=== PATIENT | female | born 1965 | race Caucasian/White ===

== ENCOUNTER → 2018-05-24 14:57 | Outpatient (CLI) | payer OTHER, MEDICAID, SELFPAY ==
[2018-05-24 16:04] LABS: Add Manual Diff / Slide Review NO; Basophils Percent Auto 0.9 % (0-2); Eosinophils Percent Auto 2.6 % (2-4); Hematocrit 39.4 % (36-46); Hemoglobin 13.1 g/dL (12.0-16.0); Lymphocytes Percent Auto 40.4 % (25-40); Mean Corpuscular HGB Conc 33.4 % (30-36); Mean Corpuscular Hemoglobin 26.9 PG (26-34); Mean Corpuscular Volume 80.5 fL (80-100); Monocytes Percent Auto 7.8 % (3-14); Neutrophils Absolute Auto 3600 /uL (3000-5900); Neutrophils Percent Auto 48.3 % (50-75); Platelet Count 269 X10^3/uL (150-400); Red Blood Cell Count 4.89 X10^6/uL (4.0-5.2); Red Cell Distribution Width 13.3 % (11.6-14.8); White Blood Cell Count 7.6 X10^3/uL (4.5-11.0)
[2018-05-24 16:19] LABS: Alanine Aminotransferase 22 IU/L (9-52); Albumin 4.2 g/dL (3.5-5.0); Albumin Globulin Ratio 1.4 (1.0-2.8); Alkaline Phosphatase 89 U/L (38-126); Aspartate Aminotransferase 18 IU/L (14-36); Bilirubin Total 0.4 mg/dL (0.2-1.3); Blood Urea Nitrogen 6 mg/dL (7-17); Calcium 9.2 mg/dL (8.4-10.2); Carbon Dioxide 28 mmol/L (22-32); Chloride 100 mmol/L (98-107); Estimated Glomerular Filt Rate > 60.0 mL/min (>60); Glucose 89 mg/dL (70-100); HEMOLYSIS < 15 (0-50); Magnesium 2.1 mg/dL (1.6-2.3); Potassium 3.7 mmol/L (3.4-5.1); Sodium 139 mmol/L (137-145); Total Protein 7.2 g/dL (6.3-8.2)
[2018-05-24 16:46] LABS: Thyroid Stimulating Hormone 1.44 uIU/mL (0.47-4.68)
[2018-05-24 17:22] LABS: Folate 10.7 ng/mL (2.76-20.0); Vitamin B12 315 pg/mL (239-931)
[2018-05-25 05:07] LABS: Hemoglobin A1C% w Est Avg Glu 5.6 % (4.0-6.0)
== END ==
PROVIDERS: Family Provider Family Medicine; PCP Family Medicine; Visit Provider Internal Medicine
DX: R20.2 Paresthesia of skin (principal)
CPT/HCPCS: 36415; 80053; 82607; 82746; 83036; 83735; 84443; 85025

== ENCOUNTER → 2018-06-16 13:01 | Outpatient (CLI) | payer OTHER, MEDICAID, SELFPAY | PROVIDERS: Family Provider Family Medicine; PCP Family Medicine; Visit Provider Internal Medicine | DX: R20.2 Paresthesia of skin (principal) | CPT/HCPCS: 95886; 95910 ==

== ENCOUNTER → 2018-08-09 11:44 | Outpatient (CLI) | payer OTHER, MEDICAID, SELFPAY ==
--- NOTE | 2018-08-09 11:45 | DI.MRI.S_ITS ---
PROCEDURE: MR CERVICAL SPINE WO CON INDICATIONS: left hand numbness weeknes and leg weeknes visual changes TECHNIQUE: Noncontrast sagittal T1 spin echo and T2 fast spin echo, sagittal STIR, foraminal oblique sagittal T2 fast spin echo, and axial gradient echo or T2 fast spin echo through the cervical spine. COMPARISON: None. FINDINGS: Image quality: Excellent. Alignment and Curvature: There is loss of normal cervical lordosis. There is mild grade 1 retrolisthesis of C6 on C7. Bone Marrow: Marrow demonstrates normal overall signal. There is mild reactive signal within the endplates adjacent to the C5-C6, C6-C7, and C7-T1 intervertebral discs. Spinal Cord: Visualized spinal cord has normal size and signal. No cerebellar tonsillar herniation. Paraspinous Soft Tissues: No paravertebral masses. Prevertebral soft tissues are normal in thickness. C2-C3: Mild disc desiccation. No significant canal, nor foraminal stenosis. C3-C4: Mild disc velocity desiccation. Mild diffuse disc bulge. Mild canal stenosis. No foraminal stenosis. C4-C5: Mild disc velocity desiccation. Mild diffuse disc bulge. Mild facet and uncovertebral hypertrophy. Mild canal stenosis. Mild foraminal stenosis bilaterally. C5-C6: Moderate discoid loss and desiccation. Mild diffuse disc bulge. Mild facet and uncovertebral hypertrophy bilaterally. Moderate canal stenosis. Mild foraminal stenosis bilaterally. C6-C7: Moderate disc velocity desiccation. Mild diffuse disc bulge/osteophyte. Mild facet and uncovertebral hypertrophy bilaterally. Moderate canal stenosis. Mild foraminal stenosis bilaterally. C7-T1: Moderate disc height loss and desiccation. Moderate diffuse disc bulge with superimposed broad-based right posterior lateral broad-based protrusion. Mild facet and uncovertebral hypertrophy bilaterally. Mild canal stenosis. Moderate right and mild left foraminal stenosis. IMPRESSION: 1. Multilevel degenerative disc and facet disease, as well as uncovertebral hypertrophy. 2. Multilevel canal stenoses, worst at C5-C6 and C6-C7, where there are moderate canal stenoses present. 3. Multilevel foraminal stenoses, worst at C7-T1 on the right, where there is moderate foraminal stenosis present. Dictated by: Sabina Camacho M.D. on 08/09/2018 at 13:54 Approved by: Sabina Camacho M.D. on 08/09/2018 at 13:58
--- NOTE | 2018-08-09 11:45 | DI.MRI.S_ITS ---
PROCEDURE: MR HEAD/BRAIN WO/W CON INDICATIONS: left hand numbness weakness and leg weakness visual changes TECHNIQUE: Noncontrast axial T1 spin echo, axial T2 fast spin echo, sagittal and axial FLAIR, coronal T2 fast spin echo, axial gradient echo, axial diffusion and ADC through the brain. After the administration of contrast, axial and coronal 3D VIBE or T1 spin echo with fat saturation through the brain. COMPARISON: None. FINDINGS: Image quality: Excellent. CSF Spaces: Basal cisterns are patent. No extra-axial fluid collections. Ventricles are normal in size and shape. Brain: No midline shift. No intracranial bleeds or masses. No abnormal intracranial enhancement. The brainstem appears normal. Diffusion-weighted images demonstrate no acute ischemic insults. No chronic ischemic insults. Normal intravascular flow voids are present. Skull and face: Calvarial marrow is normal in signal. Orbits appear normal. Sinuses: Sinuses and mastoids appear clear. IMPRESSION: 1. No acute intracranial process. 2. No explanation for visual changes, leg weakness, and hand numbness. Dictated by: Sabina Camacho M.D. on 08/09/2018 at 13:43 Approved by: Sabina Camacho M.D. on 08/09/2018 at 13:46
== END ==
PROVIDERS: Family Provider Family Medicine; PCP Family Medicine; Visit Provider Family Medicine
DX: H53.9 Unspecified visual disturbance (principal); M48.02 Spinal stenosis, cervical region; M50.31 Other cervical disc degeneration, high cervical region; R20.0 Anesthesia of skin; M62.81 Muscle weakness (generalized)
CPT/HCPCS: 70553; 72141

== ENCOUNTER → 2018-11-04 10:03 | Outpatient (CLI) | payer OTHER, SELFPAY ==
[2018-11-04 10:53] LABS: Add Manual Diff / Slide Review NO; Basophils Percent Auto 0.4 % (0-2); Eosinophils Percent Auto 2.7 % (2-4); Hematocrit 41.3 % (36-46); Hemoglobin 13.7 g/dL (12.0-16.0); Lymphocytes Percent Auto 37.3 % (25-40); Mean Corpuscular HGB Conc 33.2 % (30-36); Mean Corpuscular Hemoglobin 26.8 PG (26-34); Mean Corpuscular Volume 80.8 fL (80-100); Neutrophils Absolute Auto 3500 /uL (1500-7000); Neutrophils Percent Auto 48.6 % (50-75); Platelet Count 304 X10^3/uL (150-400); Red Blood Cell Count 5.11 X10^6/uL (4.0-5.2); Red Cell Distribution Width 13.3 % (11.6-14.8); White Blood Cell Count 7.1 X10^3/uL (4.5-11.0)
[2018-11-04 11:05] LABS: Alanine Aminotransferase 29 IU/L (9-52); Albumin 4.5 g/dL (3.5-5.0); Albumin Globulin Ratio 1.4 (1.0-2.8); Alkaline Phosphatase 92 U/L (38-126); Aspartate Aminotransferase 18 IU/L (14-36); BUN Creatinine Ratio 18.3 (6-22); Bilirubin Total 0.4 mg/dL (0.2-1.3); Blood Urea Nitrogen 11 mg/dL (7-17); Calcium 9.7 mg/dL (8.4-10.2); Carbon Dioxide 26 mmol/L (22-32); Chloride 99 mmol/L (98-107); Cholesterol 210 mg/dL (140-199); Estimated Glomerular Filt Rate > 60.0 mL/min (>60); Globulin 3.3 g/dL (1.7-4.1); Glucose 84 mg/dL (70-100); HDL Cholesterol 53 mg/dL (40-60); HEMOLYSIS 16 (0-50); LDL Cholesterol Calculated 133 mg/dL (<100); Potassium 4.1 mmol/L (3.4-5.1); Sodium 138 mmol/L (137-145); Total Protein 7.8 g/dL (6.3-8.2); Triglycerides 120 mg/dL (35-150)
[2018-11-04 11:35] LABS: TSH w/ Reflex to FT4 3.09 uIU/mL (0.47-4.68)
== END ==
PROVIDERS: Family Provider Family Medicine; PCP Family Medicine; Visit Provider Family Medicine
DX: E66.01 Morbid (severe) obesity due to excess calories (principal); I10 Essential (primary) hypertension
CPT/HCPCS: 36415; 80053; 80061; 84443; 85025

== ENCOUNTER → 2020-04-02 09:42 | Outpatient (CLI) | payer OTHER, SELFPAY ==
[2020-04-02 11:03] LABS: Add Manual Diff / Slide Review NO; Basophils Absolute Auto 0 /uL (0-100); Basophils Percent Auto 0.3 % (0-2); Eosinophils Absolute Auto 300 /uL (0-450); Eosinophils Percent Auto 3.7 % (2-4); Hematocrit 38.9 % (36-46); Hemoglobin 13.2 g/dL (12.0-16.0); Lymphocytes Absolute Auto 3100 /uL (1100-4500); Lymphocytes Percent Auto 40.7 % (25-40); Mean Corpuscular Hemoglobin 27.5 PG (26-34); Mean Corpuscular Volume 80.9 fL (80-100); Monocytes Absolute Auto 700 /uL (0-900); Monocytes Percent Auto 8.7 % (3-14); Neutrophils Absolute Auto 3500 /uL (1500-7000); Neutrophils Percent Auto 46.6 % (50-75); Platelet Count 300 X10^3/uL (150-400); Red Blood Cell Count 4.81 X10^6/uL (4.0-5.2); Red Cell Distribution Width 13.9 % (11.6-14.8); White Blood Cell Count 7.5 X10^3/uL (4.5-11.0)
[2020-04-02 11:09] LABS: Alanine Aminotransferase 16 IU/L (<35); Albumin 4.3 g/dL (3.5-5.0); Albumin Globulin Ratio 1.2 (1.0-2.8); Alkaline Phosphatase 102 U/L (38-126); Aspartate Aminotransferase 21 IU/L (14-36); BUN Creatinine Ratio 14.8 (6-22); Bilirubin Total 0.4 mg/dL (0.2-1.3); Blood Urea Nitrogen 9 mg/dL (7-17); Calcium 9.5 mg/dL (8.4-10.2); Carbon Dioxide 24 mmol/L (22-32); Chloride 105 mmol/L (98-107); Cholesterol 205 mg/dL (140-199); Estimated Glomerular Filt Rate > 60.0 mL/min (>60); Globulin 3.6 g/dL (1.7-4.1); Glucose 89 mg/dL (70-100); HDL Cholesterol 42 mg/dL (40-60); HEMOLYSIS < 15 (0-50); LDL Cholesterol Calculated 135 mg/dL (<100); Potassium 4.1 mmol/L (3.4-5.1); Sodium 140 mmol/L (137-145); Total Protein 7.9 g/dL (6.3-8.2); Triglycerides 138 mg/dL (35-150)
[2020-04-02 11:57] LABS: TSH w/ Reflex to FT4 2.53 uIU/mL (0.47-4.68)
== END ==
PROVIDERS: Family Provider Family Medicine; PCP Family Medicine; Referring Provider Family Medicine; Visit Provider Family Medicine
DX: E66.01 Morbid (severe) obesity due to excess calories (principal); I10 Essential (primary) hypertension
CPT/HCPCS: 36415; 80053; 80061; 84443; 85025

== ENCOUNTER → 2020-04-30 13:43 | Outpatient (CLI) | payer OTHER, SELFPAY ==
[2020-05-01 20:32] LABS: COVID19 Sendout Not Detected (Not Detect)
== END ==
PROVIDERS: PCP Family Medicine; Visit Provider Physician Assistant
DX: Z01.812 Encounter for preprocedural laboratory examination (principal)
CPT/HCPCS: 87635

== ENCOUNTER 2020-05-03 07:33 | Day surgery (SDC) | payer OTHER, SELFPAY ==
[2020-05-03] VITALS (17 sets, daily range): BP systolic 87–121; BP diastolic 53–73; PULSE 70–88; RESP 11–20; TEMP 36.2–36.6; O2SAT 96–100; BMI 42.0
[2020-05-03] MEDS: SODIUM CHLORIDE 0.9% 1,000 ML 200 ML IV ×2 (07:57→09:32)
--- NOTE | 2020-05-03 08:38 | PM.HP.1 ---
History of Present Illness History of Present Illness Date Patient Seen: 05/03/20 Time Patient Seen: 08:39 Chief complaint: [id number] Narrative: Patient is here for screening colonoscopy has had 2 prior colonoscopies and has had polyps in the past all benign Patient History Medical History Chicken pox (Resolved) Chronic back pain (Chronic) Colon polyps (Resolved 2011) Foot pain (Chronic) GERD (gastroesophageal reflux disease) (Resolved 1994) Hayfever (Chronic) Herpes (Chronic 1981) Hypertension (Chronic 2010) Migraines (Chronic) Surgical History Anesthesia (Resolved) History of sinus surgery (Resolved 2001) Status post LASIK surgery (Resolved 2004) Family & Social History Family History Father Diabetes mellitus Hypertension Mental health problem Cancer Heart disease High cholesterol Colon cancer Liver cancer Mother Age: 88 Heart disease Hypertension High cholesterol Sister Age: 59 Hypertension Tobacco & Substance use: Smoking Status Former smoker alcohol intake current alcohol intake frequency a few times a month Substance Use Type does not use Meds Home Medications and Allergies Home Medications Medication Instructions Recorded Confirmed Type lisinopril 10 1 tab PO QDAY #90 tab 04/09/20 05/03/20 Rx mg-hydrochlorothiazide 12.5 mg tablet omeprazole magnesium [Prilosec OTC] 20 mg PO DAILY PRN 05/03/20 05/03/20 History oxybutynin chloride 5 mg PO BID PRN 05/03/20 05/03/20 History Allergies Allergy/AdvReac Type Severity Reaction Status Date / Time No Known Drug Allergies Allergy Verified 05/03/20 07:48 Review of Systems Review of Systems ROS: Yes All systems reviewed with the patient and are negative except as otherwise documented Exam Vital Signs (past 8 hours): - 05/03/20 07:56 Temperature 97.4 F L Pulse Rate 88 Respiratory Rate 18 Blood Pressure 121/73 Pulse Oximetry 97 Oxygen Delivery Method Room Air Narrative Exam Narrative: Patient is alert and oriented Lungs are clear Heart regular rhythm no murmur Abdomen soft nontender Rectal to be done at time of colonoscopy Assessment & Plan Assessment & Plan narrative: Patient here for a follow-up screening colonoscopy with a history of polyps in the past she is asymptomatic
[2020-05-03] MEDS: fentaNYL 250 MCG/5 ML INJ IV (09:03)
[2020-05-03] MEDS: MIDAZOLAM 5 MG/5 ML VIAL IV (09:04)
--- NOTE | 2020-05-03 09:14 | PM.OP.ENDO ---
Operative Date/Time/Diagnoses Date of procedure: 05/03/20 Time of procedure: 09:15 Pre-op diagnosis: History of colon polyps Post-op diagnosis: same Procedure & Clinicians Study performed: Total colonoscopy to the cecum Same procedure as scheduled: Yes Indications: History of polyps Surgeon: Jefferson Bruce Procedure Notes SCOAP/Timeout: This was done Procedure in detail: The patient was given conscious sedation total of 5 mg of Versed and 200mg micro g of fentanyl and tolerated the procedure very well the flexible fiberoptic colonoscope was inserted transanally to the cecum patient has severe sigmoid diverticulosis without diverticulitis no polyps tumors or ulcerations were seen procedure was well tolerated numerous photographs were taken Scope withdrawal time: 11 Sedation minutes: 20 Findings: diverticulosis Specimen(s): none sent Post-procedure Recommendations: Colonscopy in 5 years
--- NOTE | 2020-05-03 12:17 | SUR.PHASEII ---
Discharge Pt had low BP, was wide awake. Denied any dizziness or lightheadedness. BP monitored. Checked orthostatic VS and they improved slightly with standing. She was able to walk to the bathroom without issue. Insturcted to monitor for dizziness at home. Left in w/c with RN escort to car with her sister. She took her purse and cell phone with her.
== END 2020-05-03 11:35 | disposition home or self-care (01) ==
PROVIDERS: PCP Family Medicine; Referring Provider Surgery; Visit Provider Surgery
PROC: 0DJD8ZZ Inspection of Lower Intestinal Tract, Via Natural or Artificial Opening Endoscopic (ICD-10-PCS; CPT 45378; principal; 2020-05-03 08:30)
DX: Z12.11 Encounter for screening for malignant neoplasm of colon (principal); Z86.010 Personal history of colon polyps; K57.30 Diverticulosis of large intestine without perforation or abscess without bleeding; I10 Essential (primary) hypertension
CPT/HCPCS: 45378; 99152; J2250; J3010

== ENCOUNTER → 2020-05-04 14:09 | Outpatient (CLI) | payer OTHER, SELFPAY ==
--- NOTE | 2020-05-04 14:20 | DI.MG.S_ITS ---
Patient Name: DOYLE OLIVA date: 1965 Sex: F Attending Physician: Aide Indications: Date: 05/04/2020 14:11 At the request of: ZANE MONROE Procedure: MM screening mammo BI BILATERAL DIGITAL SCREENING MAMMOGRAM 3D/2D WITH CAD: 05/04/2020 CLINICAL: Routine screening. Comparison is made to exams dated: 11/23/2016 mammogram, 01/11/2014 mammogram - [facility], and 10/07/2011 mammogram - [facility]. The tissue of both breasts is predominantly fatty. Current study was also evaluated with a Computer Aided Detection (CAD) system. No significant masses, calcifications, or other findings are seen in either breast. There has been no significant interval change. IMPRESSION: NEGATIVE There is no mammographic evidence of malignancy. A 1 year screening mammogram is recommended. This exam was interpreted at Station ID: [id number]. NOTE: For mammograms, a report in lay terms will be sent to the patient. Approximately 15% of breast malignancies will not be visualized mammographically. In the management of a palpable breast mass, a negative mammogram must not discourage biopsy of a clinically suspicious lesion. Electronically Signed By: Zane Augustin M.D., jr/maribell:05/06/2020 08:45:17 letter sent: Normal Exam ACR BI-RADS Category 1: Negative 3341F
== END ==
PROVIDERS: PCP Family Medicine; Referring Provider Family Medicine; Visit Provider Family Medicine
DX: Z12.31 Encounter for screening mammogram for malignant neoplasm of breast (principal)
CPT/HCPCS: 77063; 77067

== ENCOUNTER → 2020-10-12 13:02 | Outpatient (CLI) | payer OTHER, SELFPAY ==
[2020-10-12 13:47] LABS: COVID19 -Nasal RAPID Negative (Negative)
== END ==
PROVIDERS: PCP Family Medicine; Referring Provider Physician Assistant; Visit Provider Physician Assistant
DX: Z20.828 Contact with and (suspected) exposure to other viral communicable diseases (principal)
CPT/HCPCS: 87635

== ENCOUNTER → 2020-11-15 12:50 | Outpatient (CLI) | payer OTHER, SELFPAY ==
[2020-11-15] MEDS: COVID-19 VACC #1, MRNA(MOD) 100 MCG/0.5 ML VIAL IM (12:56)
== END ==
PROVIDERS: PCP Family Medicine; Visit Provider Internal Medicine
DX: Z23 Encounter for immunization (principal)
CPT/HCPCS: 0011A; 91301

== ENCOUNTER → 2020-12-13 12:58 | Outpatient (CLI) | payer OTHER, SELFPAY ==
[2020-12-13] MEDS: COVID-19 VACC #2, MRNA(MOD) 100 MCG/0.5 ML VIAL IM (13:06)
== END ==
PROVIDERS: PCP Family Medicine; Visit Provider Internal Medicine
DX: Z23 Encounter for immunization (principal)
CPT/HCPCS: 0012A; 91301

== ENCOUNTER → 2021-06-05 08:47 | Outpatient (CLI) | payer OTHER, SELFPAY ==
[2021-06-05 09:58] LABS: Add Manual Diff / Slide Review NO; Basophils Absolute Auto 0 /uL (0-100); Basophils Percent Auto 0.5 % (0-2); Eosinophils Absolute Auto 300 /uL (0-450); Eosinophils Percent Auto 3.3 % (2-4); Hematocrit 38.1 % (36-46); Hemoglobin 12.6 g/dL (12.0-16.0); Lymphocytes Absolute Auto 3400 /uL (1100-4500); Lymphocytes Percent Auto 41.2 % (25-40); Mean Corpuscular Hemoglobin 26.3 PG (26-34); Mean Corpuscular Volume 79.7 fL (80-100); Monocytes Absolute Auto 800 /uL (0-900); Monocytes Percent Auto 9.5 % (3-14); Neutrophils Absolute Auto 3800 /uL (1500-7000); Neutrophils Percent Auto 45.5 % (50-75); Platelet Count 305 X10^3/uL (150-400); Red Blood Cell Count 4.78 X10^6/uL (4.0-5.2); Red Cell Distribution Width 13.6 % (11.6-14.8); White Blood Cell Count 8.3 X10^3/uL (4.5-11.0)
[2021-06-05 10:26] LABS: Alanine Aminotransferase 14 IU/L (<35); Albumin 3.7 g/dL (3.5-5.0); Albumin Globulin Ratio 1.1 (1.0-2.8); Alkaline Phosphatase 91 U/L (38-126); Aspartate Aminotransferase 19 IU/L (14-36); BUN Creatinine Ratio 16.1 (6-22); Bilirubin Total 0.3 mg/dL (0.2-1.3); Blood Urea Nitrogen 10 mg/dL (7-17); Calcium 9.2 mg/dL (8.4-10.2); Carbon Dioxide 24 mmol/L (22-32); Chloride 106 mmol/L (98-107); Cholesterol 201 mg/dL (140-199); Estimated Glomerular Filt Rate > 60.0 mL/min (>60); Globulin 3.4 g/dL (1.7-4.1); Glucose 93 mg/dL (70-100); HDL Cholesterol 42 mg/dL (40-60); HEMOLYSIS < 15 (0-50); LDL Cholesterol Calculated 126 mg/dL (<100); Sodium 138 mmol/L (137-145); Total Protein 7.1 g/dL (6.3-8.2); Triglycerides 165 mg/dL (35-150)
[2021-06-05 10:55] LABS: TSH w/ Reflex to FT4 3.69 uIU/mL (0.47-4.68)
== END ==
PROVIDERS: PCP Family Medicine; Referring Provider Family Medicine; Visit Provider Family Medicine
DX: E78.5 Hyperlipidemia, unspecified (principal); I10 Essential (primary) hypertension
CPT/HCPCS: 36415; 80053; 80061; 84443; 85025

== ENCOUNTER → 2022-05-16 11:53 | Outpatient (CLI) | payer OTHER, SELFPAY ==
--- NOTE | 2022-05-16 11:55 | DI.RAD.S_ITS ---
PROCEDURE: XR KNEE RT 3V INDICATIONS: knee pain TECHNIQUE: 3 views of the knee were acquired. COMPARISON: [facility], CR, XR KNEE LT 3V, 05/16/2022, 12:43. FINDINGS: Bones: No fractures or dislocations. No suspicious bony lesions. On the sunrise view, there is severe lateral patellofemoral joint space narrowing seen. Osteophyte formation can be seen along the margins of the patella. There is mild lateral and medial femorotibial joint space narrowing seen, with associated remodeling changes including subchondral sclerosis and osteophyte formation along the jointline. Soft tissues: No joint effusion. No suspicious soft tissue calcifications. IMPRESSION: Severe patellofemoral joint space narrowing seen laterally. If it would be helpful for clinical management decision making, please consider a dedicated, scheduled knee MRI for further evaluation (assuming that there is no contraindication). Dictated by: Daniel Banerjee M.D. on 05/16/2022 at 16:42 Approved by: Daniel Banerjee M.D. on 05/16/2022 at 16:46
--- NOTE | 2022-05-16 11:55 | DI.RAD.S_ITS ---
PROCEDURE: XR KNEE LT 3V INDICATIONS: knee pain TECHNIQUE: 3 views of the knee were acquired. COMPARISON: [facility], CR, XR KNEE RT 3V, 05/16/2022, 12:43. FINDINGS: Bones: No fractures or dislocations. No suspicious bony lesions. There is mild medial and lateral femorotibial joint space narrowing seen, with associated remodeling changes including subchondral sclerosis and osteophyte formation along the jointline. On the sunrise view, there is moderate to severe lateral patellofemoral joint space narrowing seen. Osteophyte formation can be seen along the margins of the patella. Soft tissues: No joint effusion. No suspicious soft tissue calcifications. IMPRESSION: Focal lateral patellofemoral joint narrowing, with milder degenerative changes seen elsewhere. If it would be helpful for clinical management decision making, please consider a dedicated, scheduled knee MRI for further evaluation (assuming that there is no contraindication). Dictated by: Daniel Banerjee M.D. on 05/16/2022 at 16:46 Approved by: Daniel Banerjee M.D. on 05/16/2022 at 16:47
[2022-05-16 12:58] LABS: Cholesterol 218 mg/dL (140-199); HDL Cholesterol 49 mg/dL (40-60); LDL Cholesterol Calculated 139 mg/dL (<100); Triglycerides 148 mg/dL (35-150)
== END ==
PROVIDERS: PCP Family Medicine; Referring Provider Family Medicine; Visit Provider Family Medicine
DX: M25.569 Pain in unspecified knee (principal); E78.5 Hyperlipidemia, unspecified
CPT/HCPCS: 36415; 73562; 80061

== ENCOUNTER → 2022-08-13 17:12 | Outpatient (CLI) | payer OTHER, SELFPAY ==
--- NOTE | 2022-08-13 17:14 | DI.MG.S_ITS ---
BILATERAL DIGITAL SCREENING MAMMOGRAM 3D/2D WITH CAD: 08/13/2022 CLINICAL: Routine screening. Comparison is made to exams dated: 05/04/2020 mammogram, 01/11/2014 mammogram, and 11/23/2016 mammogram - [facility]. There are scattered areas of fibroglandular density in both breasts (category b / 25%-50% glandular tissue). Current study was also evaluated with a Computer Aided Detection (CAD) system. No significant masses, calcifications, or other findings are seen in either breast. There has been no significant interval change. IMPRESSION: NEGATIVE There is no mammographic evidence of malignancy. A 1 year screening mammogram is recommended. Based on the Tyrer Cuzick model (a risk assessment model) the patient's lifetime risk is 9.6% and her 10 year risk is 3.7%. According to the ACR, ACS, and NCCN guidelines, an annual breast MRI exam along with mammogram is recommended if the patient's lifetime risk is 20% or greater. This exam was interpreted at Station ID: [id number]. NOTE: For mammograms, a report in lay terms will be sent to the patient. Approximately 15% of breast malignancies will not be visualized mammographically. In the management of a palpable breast mass, a negative mammogram must not discourage biopsy of a clinically suspicious lesion. Electronically Signed By: Edgar morales/maribell:08/14/2022 09:42:52 letter sent: Normal Exam ACR BI-RADS Category 1: Negative 3341F
== END ==
PROVIDERS: PCP Family Medicine; Referring Provider Family Medicine; Visit Provider Family Medicine
DX: Z12.31 Encounter for screening mammogram for malignant neoplasm of breast (principal)
CPT/HCPCS: 77063; 77067

== ENCOUNTER → 2023-05-22 10:21 | Outpatient (CLI) | payer OTHER, SELFPAY ==
[2023-05-22 11:16] LABS: Add Manual Diff / Slide Review NO; Basophils Absolute Auto 0 /uL (0-100); Basophils Percent Auto 0.5 % (0-2); Eosinophils Absolute Auto 300 /uL (0-450); Eosinophils Percent Auto 4.6 % (2-4); Hematocrit 38.6 % (36-46); Hemoglobin 12.9 g/dL (12.0-16.0); Lymphocytes Absolute Auto 3400 /uL (1100-4500); Lymphocytes Percent Auto 46.7 % (25-40); Mean Corpuscular HGB Conc 33.3 % (30-36); Mean Corpuscular Hemoglobin 26.8 PG (26-34); Mean Corpuscular Volume 80.5 fL (80-100); Monocytes Absolute Auto 700 /uL (0-900); Monocytes Percent Auto 9.2 % (3-14); Neutrophils Absolute Auto 2800 /uL (1500-7000); Platelet Count 272 X10^3/uL (150-400); Red Blood Cell Count 4.79 X10^6/uL (4.0-5.2); Red Cell Distribution Width 13.7 % (11.6-14.8); White Blood Cell Count 7.2 X10^3/uL (4.5-11.0)
[2023-05-22 11:33] LABS: Alanine Aminotransferase 19 IU/L (<35); Albumin Globulin Ratio 1.2 (1.0-2.8); Alkaline Phosphatase 112 U/L (38-126); Aspartate Aminotransferase 25 IU/L (14-36); BUN Creatinine Ratio 16.9 (6-22); Bilirubin Total 0.4 mg/dL (0.2-1.3); Blood Urea Nitrogen 10 mg/dL (7-17); Calcium 8.9 mg/dL (8.4-10.2); Carbon Dioxide 26 mmol/L (22-32); Chloride 104 mmol/L (98-107); Cholesterol 210 mg/dL (140-199); Estimated Glomerular Filt Rate > 60 mL/min (>60); Globulin 3.4 g/dL (1.7-4.1); Glucose 85 mg/dL (80-110); HDL Cholesterol 44 mg/dL (40-60); HEMOLYSIS < 15 (0-50); LDL Cholesterol Calculated 136 mg/dL (<100); Potassium 4.1 mmol/L (3.4-5.1); Sodium 137 mmol/L (137-145); Total Protein 7.4 g/dL (6.3-8.2); Triglycerides 152 mg/dL (35-150)
[2023-05-22 12:04] LABS: TSH w/ Reflex to FT4 2.06 uIU/mL (0.47-4.68)
[2023-05-23 06:25] LABS: Labcorp Hemoglobin (Hb) A1c 5.7 % (4.8-5.6)
== END ==
PROVIDERS: PCP Family Medicine; Referring Provider Family Medicine; Visit Provider Family Medicine
DX: E78.5 Hyperlipidemia, unspecified (principal); I10 Essential (primary) hypertension
CPT/HCPCS: 36415; 80053; 80061; 83036; 84443; 85025

== ENCOUNTER → 2023-05-23 12:38 | Outpatient (CLI) | payer OTHER, SELFPAY ==
--- NOTE | 2023-05-23 12:40 | DI.CT.S_ITS ---
PROCEDURE: CT HEAD/BRAIN WO/W CON INDICATIONS: memory loss TECHNIQUE: 4.5 mm thick angled axial sections acquired from the foramen magnum to the vertex before and after the administration of intravenous contrast, with coronal and sagittal reformats. For radiation dose reduction, the following was used: automated exposure control, adjustment of mA and/or kV according to patient size. COMPARISON: None. FINDINGS: Image quality: Excellent. CSF Spaces: Basal cisterns are patent. No extra-axial fluid collections. Ventricles are normal in size and shape. Brain: No midline shift. No intracranial bleeds or masses. No abnormal intracranial enhancement. Scanlon-white interface appears normal. Skull and face: Calvarium and visualized facial bones appear intact, without suspicious lesions. Sinuses: Visualized sinuses and mastoids are clear. IMPRESSION: Normal CT of the brain with and without contrast Approved by: Thad Bishop M.D. on 05/23/2023 at 14:08
== END ==
PROVIDERS: PCP Family Medicine; Referring Provider Family Medicine; Visit Provider Family Medicine
DX: R41.3 Other amnesia (principal)
CPT/HCPCS: 70470

== ENCOUNTER → 2023-08-25 16:13 | Outpatient (CLI) | payer OTHER, SELFPAY ==
--- NOTE | 2023-08-25 | DI.MG.S_ITS ---
BILATERAL DIGITAL SCREENING MAMMOGRAM 3D/2D WITH CAD: 08/25/2023 CLINICAL: Routine screening. Comparison is made to exams dated: 08/13/2022 mammogram, 05/04/2020 mammogram, and 11/23/2016 mammogram - [facility]. There are scattered areas of fibroglandular density in both breasts (category b / 25%-50% glandular tissue). Current study was also evaluated with a Computer Aided Detection (CAD) system. No significant masses, calcifications, or other findings are seen in either breast. There has been no significant interval change. IMPRESSION: NEGATIVE There is no mammographic evidence of malignancy. A 1 year screening mammogram is recommended. Based on the Tyrer Cuzick model (a risk assessment model) the patient's lifetime risk is 9.4% and her 10 year risk is 3.8%. According to the ACR, ACS, and NCCN guidelines, an annual breast MRI exam along with mammogram is recommended if the patient's lifetime risk is 20% or greater. This exam was interpreted at Station ID: [id number]. NOTE: For mammograms, a report in lay terms will be sent to the patient. Approximately 15% of breast malignancies will not be visualized mammographically. In the management of a palpable breast mass, a negative mammogram must not discourage biopsy of a clinically suspicious lesion. Electronically Signed By: Edgar morales/maribell:08/26/2023 12:14:33 letter sent: Normal Exam ACR BI-RADS Category 1: Negative 3341F
== END ==
PROVIDERS: PCP Family Medicine; Referring Provider Family Medicine; Visit Provider Family Medicine
DX: Z12.31 Encounter for screening mammogram for malignant neoplasm of breast (principal)
CPT/HCPCS: 77063; 77067

== ENCOUNTER → 2023-11-24 14:29 | Outpatient (CLI) | payer OTHER, SELFPAY ==
--- NOTE | 2023-11-24 14:33 | DI.RAD.S_ITS ---
PROCEDURE: XR HAND LT MIN 3V INDICATIONS: Pain Left MCP x 1 year getting worse; suspect arthritis TECHNIQUE: 3 views of the hand(s) acquired. COMPARISON: None. FINDINGS: Bones: No fractures or dislocations. Carpal bones are normally aligned. No suspicious bony lesions. Mild degenerative arthritis involving the 1st carpometacarpal joint as well as the 1st IP joint. No other significant arthritic change. Soft tissues: No suspicious soft tissue calcifications. 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 Otherwise unremarkable. Dictated by: Micah Deleon M.D. on 11/24/2023 at 18:58 Approved by: Micah Deleon M.D. on 11/24/2023 at 18:59
== END ==
PROVIDERS: PCP Family Medicine; Referring Provider Physician Assistant; Visit Provider Physician Assistant
DX: M18.12 Unilateral primary osteoarthritis of first carpometacarpal joint, left hand (principal); M19.042 Primary osteoarthritis, left hand; M79.645 Pain in left finger(s)
CPT/HCPCS: 73130

== ENCOUNTER 2023-12-06 12:02 | Outpatient (RCR) | payer OTHER, SELFPAY ==
--- NOTE | 2023-12-06 16:00 | OT.OP.EVAL ---
Visit Care Team Role Provider Type Zane Noble MD Family Provider Physician Primary Care Provider Specialty: Family Practice Address: [address] [place] [address], [address], [place], [address] Email: [email or web address] Mary Strickland [email or web address] Attending Provider [employer] Build[employer] Gr[employer] Superintendent Referring Provider Specialty: Medical Address: [address] [place] [address], [place] [address], [place], [address] Email: [email or web address] Occupational Therapy Initial Evaluation OT Outpatient Adult Evaluation Start: 12/07/23 09:10 Freq: Status: Active Protocol: Document 12/06/23 16:00 AMS (Rec: 12/07/23 09:36 AMS [id number]) General Information - Adult Visit Number 1 Plan of Care Dates 12/06/23 - 01/17/24 Insurance Information [employer]; max 20 OT/PT/Pulmonary Rehab PCY Visit Start Time 12:15 Visit Stop Time 12:58 Treatment Setting Outpatient Care Note Type Initial Evaluation Identification Confirmed Yes Identification Confirmed By Self Goals Solutions Architect Goals 1. Adore will be modified independent with home exercise program utilizing provided written and visual instructions from therapist as needed. 2. Adore will verbalize 100% of basic joint protection principles relative to the fingers/hands (e.g., avoiding positions of deformity of the left thumb). Assessment/Plan Treatment Assessment Val Nguyễn) is left hand dominant and was referred to OT secondary to thumb arthritis. Medical history is significant for allergies/tape /latex; arthritis; back pain; blood pressure (med managed); headaches; and surgery (sinus) . 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 Hand/Wrist Pain Assessment Grid was completed; indication of 2 out of 10 on pain scale relative to volar surface of R thumb CMC -> IPJ and 6 out of 10 on pain scale relative to volar surface of L thumb CMC -> IPJ. Primarily using ice for pain management occasionally; has trialed topical pain treatment without much success. Has thumb/hand compression sleevel and rigid L thumb brace. QuickDASH UE Outcome Measure Score = 52.27; QuickDASH UE Work Module Score = 12.5. Indication that arthritis is impacting handwriting. L radial thumb abd 45 degrees vs R radial thumb abd 50. L palmar thumb abd 45 degrees vs R palmar thumb abd 55 degrees. Outpatient OT is recommended for joint protection education , discussion of conservative pain management strategies, and development of home exercise program. Home Exercise Program 12/06/23 = Initiated home exercise program; provided written and visual instructions for self- myofascial thumb adductor release, resistant thumb ext, resistant thumb abd, and place and hold w/ more of focus on functional 'c'/motor re- training and avoiding positions of deformity primarily of hyperext at the MPJ. With rubberband, 3 x 10 reps rec. With self-myofascial thumb adductor release 20-30 sec hold x 2 reps. Also discussed avoiding resistant/ sustained holds which may exacerbate arthritis symptoms. Also rec consideration of use of heat, including paraffin bath. Length of treatment (weeks) 6 Plan of Care Start Date 12/06/23 Plan of Care End Date 01/17/24 Comment *Insurance coverage concerns were expressed by Adore Comment 1 x wk vs 1 x every other week Therapeutic Contents Active Range of Motion, Adaptive Equipment Education, Client Education,Functional Activities,Home Exercise Program,Joint Protection, Manual Therapy,Education, Neurodevelopment Treatment, Neuromuscular Re-Education, Self-Care,Stretching/ Flexibility Activities, Therapeutic Activities, Therapeutic Exercises, Modalities Modalities As Needed,As Prescribed Additional Types of Modalities Heat/Ice/Paraffin Bath/ Ultrasound
--- NOTE | 2024-01-18 09:18 | OT.OP.DC ---
Visit Care Team Role Provider Type Zane Noble MD Family Provider Physician Primary Care Provider Address: [address] [place] [address], Suite [facility], [place], [address] Email: [email or web address] Mary Strickland PA-C Attending Provider Advanced Driving Instructor Referring Provider Address: [address] [place] [address], [place] [address], [place], [address] Email: [email or web address] OT Outpatient OT Outpatient Adult Evaluation Start: 12/07/23 09:10 Freq: Status: Active Protocol: Document 12/06/23 16:00 AMS (Rec: 12/07/23 09:36 AMS [id number]) General Information - Adult Visit Information Visit Number 1 Plan of Care Dates 12/06/23 - 01/17/24 Insurance Information [employer]; max 20 OT/PT/Pulmonary Rehab PCY Session Time Visit Start Time 12:15 Visit Stop Time 12:58 Setting Treatment Setting Outpatient Care Visit Type Note Type Initial Evaluation Identification Identification Confirmed Yes Identification Confirmed By Self Goals Orthodontist Goals Jail Goals 1. Adore will be modified independent with home exercise program utilizing provided written and visual instructions from therapist as needed. 2. Adore will verbalize 100% of basic joint protection principles relative to the fingers/hands (e.g., avoiding positions of deformity of the left thumb). Assessment/Plan Assessment Treatment Assessment Val Nguyễn) is left hand dominant and was referred to OT secondary to thumb arthritis. Medical history is significant for allergies/tape /latex; arthritis; back pain; blood pressure (med managed); headaches; and surgery (sinus) . 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 Hand/Wrist Pain Assessment Grid was completed; indication of 2 out of 10 on pain scale relative to volar surface of R thumb CMC -> IPJ and 6 out of 10 on pain scale relative to volar surface of L thumb CMC -> IPJ. Primarily using ice for pain management occasionally; has trialed topical pain treatment without much success. Has thumb/hand compression sleevel and rigid L thumb brace. QuickDASH UE Outcome Measure Score = 52.27; QuickDASH UE Work Module Score = 12.5. Indication that arthritis is impacting handwriting. L radial thumb abd 45 degrees vs R radial thumb abd 50. L palmar thumb abd 45 degrees vs R palmar thumb abd 55 degrees. Outpatient OT is recommended for joint protection education , discussion of conservative pain management strategies, and development of home exercise program. Home Exercise Program 12/06/23 = Initiated home exercise program; provided written and visual instructions for self- myofascial thumb adductor release, resistant thumb ext, resistant thumb abd, and place and hold w/ more of focus on functional 'c'/motor re- training and avoiding positions of deformity primarily of hyperext at the MPJ. With rubberband, 3 x 10 reps rec. With self-myofascial thumb adductor release 20-30 sec hold x 2 reps. Also discussed avoiding resistant/ sustained holds which may exacerbate arthritis symptoms. Also rec consideration of use of heat, including paraffin bath. Plan Length of treatment (weeks) 6 Plan of Care Start Date 12/06/23 Plan of Care End Date 01/17/24 Comment *Insurance coverage concerns were expressed by Adore Comment 1 x wk vs 1 x every other week Therapeutic Contents Active Range of Motion, Adaptive Equipment Education, Client Education,Functional Activities,Home Exercise Program,Joint Protection, Manual Therapy,Education, Neurodevelopment Treatment, Neuromuscular Re-Education, Self-Care,Stretching/ Flexibility Activities, Therapeutic Activities, Therapeutic Exercises, Modalities Modalities As Needed,As Prescribed Additional Types of Modalities Heat/Ice/Paraffin Bath/ Ultrasound Functional Wrist/Hand Scan Hand Side Sensory Assessment Sensory Profile2 OT Outpatient Treatment Note - Adult Start: 12/07/23 09:10 Freq: Status: Active Protocol: Document 01/18/24 09:15 [facility] (Rec: 01/18/24 09:18 [facility] [id number]) OT Outpatient Adult Treatment Note Visit Information Plan of Care Dates 12/06/23 - 01/17/24 Insurance Information [employer]; Max 20 OT/PT/Pulmonary Rehab PCY Setting Treatment Setting Outpatient Care Visit Type Note Type Discharge Summary General Information General Information Val Nguyễn) is left hand dominant and was referred to OT secondary to thumb arthritis. Medical history is significant for allergies/tape /latex; arthritis; back pain; blood pressure (med managed); headaches; and surgery (sinus) . 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 - Subjective Observations Adore has not been seen in outpatient OT since 12/06/23 and POC on 01/17/24; thus, recommend d/c from outpatient OT and re-evaluate as deemed appropriate by PCP w / receipt of new referral. - Objective Orthodontist Goals ALL GOALS D/C OF 01/18/24 1. Adore will be modified independent with home exercise program utilizing provided written and visual instructions from therapist as needed. 2. Adore will verbalize 100% of basic joint protection principles relative to the fingers/hands (e.g., avoiding positions of deformity of the left thumb). - - Assessment Assessment of Improvement Adore has not been seen in outpatient OT since 12/06/23 and POC on 01/17/24; thus, recommend d/c from outpatient OT and re-evaluate as deemed appropriate by PCP w / receipt of new referral. - Plan Therapy Recommendations Discharge from Occupational Therapy
== END 2024-01-19 09:10 | disposition home or self-care (01) ==
LOC: OT 12:02
PROVIDERS: Family Provider Family Medicine; PCP Family Medicine; Referring Provider Physician Assistant; Visit Provider Physician Assistant
DX: M18.10 Unilateral primary osteoarthritis of first carpometacarpal joint, unspecified hand (principal)
CPT/HCPCS: 97110; 97165

== ENCOUNTER → 2024-06-10 08:42 | Outpatient (CLI) | payer OTHER, SELFPAY ==
[2024-06-10 09:27] LABS: Hemoglobin A1C% w Est Avg Glu 5.5 % (4.0-6.0)
== END ==
PROVIDERS: Family Provider Family Medicine; PCP Family Medicine; Referring Provider Family Medicine; Visit Provider Family Medicine
DX: R73.01 Impaired fasting glucose (principal)
CPT/HCPCS: 83036

== ENCOUNTER → 2024-10-10 | Outpatient (CLI) | payer OTHER, SELFPAY ==
--- NOTE | 2024-10-10 17:00 | DI.MG.S_ITS ---
BILATERAL DIGITAL SCREENING MAMMOGRAM 3D/2D WITH CAD: 10/10/2024 CLINICAL: Routine screening. Comparison is made to exams dated: 08/25/2023 mammogram, 08/13/2022 mammogram, and 05/04/2020 mammogram - [facility]. There are scattered areas of fibroglandular density (category b / 25%-50% glandular tissue). Current study was also evaluated with a Computer Aided Detection (CAD) system. No significant masses, calcifications, or other findings are seen in either breast. There has been no significant interval change. IMPRESSION: NEGATIVE There is no mammographic evidence of malignancy. A 1 year screening mammogram is recommended. Based on the Tyrer Cuzick model (a risk assessment model) the patient's lifetime risk is 9.2% and her 10 year risk is 3.8%. According to the ACR, ACS, and NCCN guidelines, an annual breast MRI exam along with mammogram is recommended if the patient's lifetime risk is 20% or greater. This exam was interpreted at Station ID: [id number]. NOTE: For mammograms, a report in lay terms will be sent to the patient. Approximately 15% of breast malignancies will not be visualized mammographically. In the management of a palpable breast mass, a negative mammogram must not discourage biopsy of a clinically suspicious lesion. Electronically Signed By: Isa Wilson M.D., Ph.D. gayatri/maribell:10/12/2024 19:50:52 letter sent: Normal Exam ACR BI-RADS Category 1: Negative
== END ==
LOC: MAMMO 17:00
PROVIDERS: Family Provider Family Medicine; PCP Family Medicine; Referring Provider Family Medicine; Visit Provider Family Medicine
DX: Z12.31 Encounter for screening mammogram for malignant neoplasm of breast (principal)
CPT/HCPCS: 77063; 77067

== ENCOUNTER → 2024-11-07 07:30 | Outpatient (CLI) | payer OTHER, SELFPAY | PROVIDERS: Family Provider Family Medicine; PCP Family Medicine; Visit Provider Nurse Practitioner Family | DX: J02.9 Acute pharyngitis, unspecified (principal) | CPT/HCPCS: 87070; 87077; 87147 ==

== ENCOUNTER 2025-05-31 12:08 | Day surgery (SDC) | payer OTHER, SELFPAY ==
--- NOTE | 2025-05-31 | PATH_ITS ---
[facility] Accession Number: [id number] No. of containers..01 Tissue . 01 Material submitted: . colon - CECAL POLYP . 01 Diagnosis: CECAL POLYP: Vegetable matter consistent with seeds. No intact tissue identified. [facility] 06/06/20255 Local . 01 Electronically signed: . Marcos Zayas MD, Pathologist NPI- [id number] . 01 Gross description: . CECAL POLYP: Received in formalin are 3 fragment(s) of aguilera, soft tissue or debris measuring 0.1 x 0.1 x 0.1 cm to 0.5 x 0.2 x 0.2 cm submitted entirely in 1 cassette(s) /[facility] 06/06/2025 Local . 01 Pathologist provided ICD-10: K63.5 . 01 CPT . 115507 Specimen Comment: A courtesy copy of this report has been sent to [phone] Performed at: [address] [address], [place], [place] [id number] MD Marcos Zayas MD Phone: [phone]
--- NOTE | 2025-05-31 12:33 | PM.HP.IH.1 ---
History of Present Illness History of Present Illness Date Patient Seen: 05/31/25 Time Patient Seen: 12:33 Chief complaint: Colonoscopy Narrative: Val is a 60-year-old woman here for a colonoscopy. Her last one was in 2019 and no polyps were found but she has had polyps with other colonoscopies in the past. Her father had colon cancer in his 70s. [facility] Medical History Chicken pox Chronic back pain Colon polyps (2011) Foot pain GERD (gastroesophageal reflux disease) (1994) Hayfever Herpes (1981) Hypertension (2010) Migraines URI (upper respiratory infection) Surgical History Anesthesia History of sinus surgery (2001) Status post LASIK surgery (2004) Family History Father Diabetes mellitus Hypertension Mental health problem Cancer Heart disease High cholesterol Colon cancer Liver cancer Mother Age: 93 Heart disease Hypertension High cholesterol Sister Age: 64 Hypertension Social History marital status: unmarried,single alcohol intake: current substance use type: does not use Meds Home Medications and Allergies Home Medications ?Medication ?Instructions ?Recorded ?Confirmed ?Type ipratropium bromide 21 mcg (0.03 See Rx Instructions .Route 07/01/23 05/29/24 Rx %) nasal spray .COMPLEX #30 mL tolterodine 4 mg capsule,extended 4 mg PO DAILY #90 caps 11/09/23 05/31/25 Rx release 24 hr (Detrol [place]) ketoconazole 2 % topical cream See Rx Instructions topical BID 05/29/24 05/29/24 Rx #30 grams lisinopril 10 See Rx Instructions .Route 05/29/24 05/31/25 Rx mg-hydrochlorothiazide 12.5 mg .COMPLEX #90 tabs tablet triamcinolone acetonide 0.1 % See Rx Instructions topical BID 05/29/24 05/29/24 Rx topical cream #30 grams Allergies Allergy/AdvReac Type Severity Reaction Status Date / Time No Known Drug Allergies Allergy Verified 05/31/25 12:34 Exam Const General: No acute distress Assessment & Plan Assessment and plan (1) History of colon polyps: Status: Acute (2) Family history of colon cancer: Status: Acute Plan Colonoscopy Time-Based Coding :: [TOTAL MINUTES] spent with patient and on the chart (including review of chart, obtaining history, exam, reviewing outside data, placing orders, documenting exam and treatment plan, and counseling patient) on [DATE]. PROFEE Research Asst Document charge(s): No
[2025-05-31 12:34] VITALS: BP 134/81; PULSE 84; RESP 16; TEMP 36.3; O2SAT 96
[2025-05-31] MEDS: LACTATED RINGERS 1,000 ML 42 ML IV (12:43)
--- NOTE | 2025-05-31 13:27 | PM.OP.COLON ---
Operative Date/Time/Diagnoses Date of procedure: 05/31/25 Time of procedure: 13:27 Pre-op diagnosis: History of polyps Post-op diagnosis: same Procedure & Clinicians Study performed: Colonoscopy Same procedure(s) as scheduled: Yes Surgeon: Kenneth Bill Anesthesia Type: MAC +/- Procedure Notes Procedure in detail: Surgeon: Kenneth Bill MD Anesthesia: [facility]entes Hall.Jovanni Procedure: The patient was brought to the endoscopy suite, placed in left lateral decubitus position. The patient was connected to monitoring devices. A time-out was performed. Sedation was administered. Once the patient was adequately sedated, a digital rectal exam was performed and was normal. The scope was then inserted and advanced to the cecum where the appendiceal orifice was identified and photographed. The scope was then slowly withdrawn over greater than 6 minutes. The mucosa was thoroughly inspected. There was a 3 mm polyp in the cecum removed with a cold snare. The scope was retroflexed in the rectum. No other abnormalities were found. The scope was straightened and removed. The patient was awakened and brought to recovery. Scope withdrawal time: 9 minutes Sedation time: 16 minutes EBL: 3 mL Findings: 3 mm polyp in the cecum Post-procedure Disposition: PACU
[2025-05-31 13:31] VITALS: BP 122/66; BP 133/67; PULSE 72; RESP 12; RESP 19; TEMP 36.4; O2SAT 96; O2SAT 97
[2025-05-31 13:36] VITALS: BP 120/70; PULSE 70; RESP 19; O2SAT 97
[2025-05-31 13:42] VITALS: BP 116/70; PULSE 73; RESP 16; O2SAT 97
== END 2025-05-31 14:00 | disposition home or self-care (01) ==
PROVIDERS: Family Provider Family Medicine; PCP Family Medicine; Referring Provider Surgery; Visit Provider Surgery
PROC: 0DJD8ZZ Inspection of Lower Intestinal Tract, Via Natural or Artificial Opening Endoscopic (ICD-10-PCS; CPT 45378; principal; 2025-05-31 13:30)
DX: Z12.11 Encounter for screening for malignant neoplasm of colon (principal); Z86.0100 Personal history of colon polyps, unspecified; Z80.0 Family history of malignant neoplasm of digestive organs; K63.5 Polyp of colon
CPT/HCPCS: 45385; J2704